=== PATIENT | female | born 1960 | race Asian ===

== ENCOUNTER → 2022-11-16 | Outpatient (CLI) | payer BC | END | disposition home or self-care (01) | LOC: RAH 12:32 | PROVIDERS: ATTEND Physical Medicine & Rehabilitation | DX: M48.02 Spinal stenosis, cervical region (principal); M25.552 Pain in left hip; M54.6 Pain in thoracic spine; M47.812 Spondylosis without myelopathy or radiculopathy, cervical region | CPT/HCPCS: 72050; 72070; 73502 ==

== ENCOUNTER → 2022-12-24 | Outpatient (CLI) | payer BC | END | disposition home or self-care (01) | LOC: RAH 15:04 | PROVIDERS: ATTEND Physical Medicine & Rehabilitation | DX: M48.02 Spinal stenosis, cervical region (principal); R20.0 Anesthesia of skin; M54.2 Cervicalgia; M47.812 Spondylosis without myelopathy or radiculopathy, cervical region | CPT/HCPCS: 72141 ==